=== PATIENT | female | born 1995 | race Caucasian/White ===

== ENCOUNTER 2025-04-29 12:25 | Outpatient (REF) | payer OTHER, SELFPAY ==
--- OUTSIDE RECORDS SUMMARY | 2025-03-22 13:50 | XMS_ITS | Encounter Summary ---
Author Organization [facility] Address [address], [place] [address] Care Team Providers Care Framer Name Role Phone Dagmar Poon PA-C Primary Care Provider Reason for Visit * Reason Comments COLPOSCOPY Encounter Details Date Type Department Care Team (Latest Contact Info) Description 03/22/2025 1:50 PM CDT Office Visit [place] 1515 Obstetrics/Gynecolo gy 1515 [facility] [place] [address] Mildred Quevedo MD 1515 [facility] [address] [place], [place] [id number] Atypical squamous cells cannot exclude high grade squamous intraepithelial lesion on cytologic smear of cervix (ASC-H) (Primary Dx); Cervical high risk HPV (human papillomavirus) test positive; Low grade squamous intraepithelial lesion (LGSIL) on cervical Pap smear; Presence of Mirena IUD Social History Tobacco Use Types Packs/Day Years Used Date Smoking Tobacco: Never Passive Smoke Exposure: Never Smokeless Tobacco: Never Alcohol Use Standard Drinks/Week Comments Yes 0 (1 standard drink = 0.6 oz pur e alcohol) socially PHQ-2 Answer Date Recorded PHQ-2 Score 1 02/07/2025 Comments No Sex and Gender Information Value Date Recorded Sex Assigned at Not on file Legal Sex Female 5:06 AM CDT Gender Identity Not on file Sexual Orientation Not on file 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 presents for colposcopy. She had a ASC-H, LGSIL pap smear, HPV other high-risk positive Adverse Drug Reactions: Allergies Allergen Reactions Cefuroxime PN: LW Reaction: Rash, Generalized Penicillins PN: LW Reaction: RASH Medications: Reviewed and updated on [facility] Patient Active Problem List Diagnosis Family history of colon cancer Atypical squamous cells cannot exclude high grade squamous intraepithelial lesion on cytologic smear of cervix (ASC-H) Adjustment disorder with anxiety (HRC) OBJECTIVE: BP 100/61 (BP Location: Left Arm, BP Cuff Size: Regular) Pulse (!) 45 Vital Signs: Reviewed; See Flowsheet Charting in [facility] PROCEDURE: Procedure was reviewed with the patient and she wished to proceed. She was placed in dorsolithotomyposition. Speculum was placed and the cervix is easily visualized. Mirena IUD strings are visible. Entire transformation zone was visualized. Green filter was used and there was no evidence of atypical vessels. Cervix and upper vaginal blackwood were sprayed with dilute acetic acid and inspected. Acetowhite changes were noted at 12 o'clock position on the cervix. There was also some irregularity to the cervix the slightly raised appearance at this location. Tischler forceps were used to biopsy thisarea. Silver nitrate sticks were used to achieve hemostasis. Endocervical curettings were obtained. Speculum was removed. Patient tolerated procedure well. Labs: Cervical biopsy at 12 o'clock. Endocervical curettings. ASSESSMENT: 1. 29 y.o. with Encounter Diagnoses Name Primary? Atypical squamous cells cannot exclude high grade squamous intraepithelial lesion on cytologic smear of cervix (ASC-H) Yes Cervical high risk HPV (human papillomavirus) test positive Low grade squamous intraepithelial lesion (LGSIL) on cervical Pap smear Presence of Mirena IUD PLAN: Colposcopy and biopsy done as described above. Will contact patient with results and determine follow-up and treatment plan at that time. Pelvic rest recommended for 3 to 4 days. Also discussedconsideration of the HPV 9 vaccine as she received the HPV 4 previously. All questions answered. *SH~DNS~colpo documented in this encounter Plan of Treatment Not on file documented as of this encounter Procedures Procedure Name Priority Date/Time Associated Diagnosis Comments SURGICAL PATHOLOGY, AUTOMATION CONTROLS SPECIALIST Routine 03/22/2025 2:04 PM CDT Atypical squamous cells cannot exclude high grade squamous intraepithelial lesion on cytologic smear of cervix (ASC-H) Cervical high risk HPV (human papillomavirus) test positive Low grade squamous intraepithelial lesion (LGSIL) on cervical Pap smear documented in this encounter Results * Surgical Path, AUTOMATION CONTROLS SPECIALIST (03/22/2025 2:04 PM CDT) Case Report Surgical Pathology Case: [id number] Authorizing Provider: Mildred Quevedo MD Collected: 03/22/2025 1404 Ordering Location: [place] [address] Received: 03/22/2025 1433 Obstetrics/Gyneco logy Pathologist: Dominic Uriostegui MD Specimens: A) - Cervix, 12:00 B) - Endocervix 04/06/2025 2:40 PM CDT [facility] FINAL DIAGNOSIS A. Cervix, 12:00, biopsy: High-grade squamous intraepithelial lesion (MICHELLE 2-3) Immunostain for p16 supports the diagnosis B. Endocervix, curettage: Benign endocervical mucosa 04/06/2025 2:40 PM CDT [facility] at 1440 CDT Clinical Information ASC-H, LGSIL, HPV other pos 04/06/2025 2:40 PM CDT [facility] Microscopic Description Microscopic examination is performed. 04/06/2025 2:40 PM CDT [facility] Special Stains The stain controls have been reviewed and stain appropriately. 04/06/2025 2:40 PM CDT [facility] Gross Description A: The specimen is received in formalin and labeled with the patient's name and Cervix, 12:00. The specimen consists of multiple davis-arcos tissue fragments ranging from less than 0.1 cm to 0.2 cm. The specimen is filtered and entirely submitted in one cassette. B: The specimen is received in formalin and labeled with the patient's name and Endocervix. The specimen consists of scant blood-tinged tissue fragments in a 2 cm in aggregate of mucus. The specimen is filtered and entirely submitted in one cassette. AW 04/06/2025 2:40 PM CDT [facility] Embedded Images 04/06/2025 2:40 PM CDT [facility] Tissue ENTIRE ENDOCERVIX / Unknown 03/22/2025 2:04 PM CDT 03/22/2025 2:33 PM CDT Tissue specimen (specimen) ENTIRE ENDOCERVIX / Unknown 03/22/2025 2:04 PM CDT 03/22/2025 2:33 PM CDT us Mildred Quevedo MD LAB PATHOLOGY Final Result [facility] [address] [place], [place] [address] documented in this encounter Visit Diagnoses Diagnosis Atypical squamous cells cannot exclude high grade squamous intraepithelial lesion on cytologic smear of cervix (ASC-H)- Primary Papanicolaou smear of cervix with atypical squamous cells cannot exclude high grade squamous intraepithelial lesion (ASC-H) Cervical high risk HPV (human papillomavirus) test positive Cervical high risk human papillomavirus (HPV) DNA test positive Low grade squamous intraepithelial lesion (LGSIL) on cervical Pap smear Presence of Mirena IUD documented in this encounter Care Teams Framer Relationship Specialty Start Date End Date Dagmar Poon PA-C [address] [place] [address] PCP - General Physician Pulp Screen Operator 01/07/25 documented as of this encounter
--- OUTSIDE RECORDS SUMMARY | 2025-03-22 13:50 | XMS_ITS | Encounter Summary ---
Author Organization [facility] Address [address] [address] Care Team Providers Care Director Stars Name Role Phone Dagmar Poon PA-C Primary Care Provider Reason for Visit * Reason Comments COLPOSCOPY Encounter Details Date Type Department Care Team (Latest Contact Info) Description 03/22/2025 1:50 PM CDT Office Visit [place] 1515 Obstetrics/Gynecolo gy 1515 [facility] 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 Not on file Not [...] Reaction: RASH Medications: Reviewed and updated on [facility] Patient Active Problem List Diagnosis Family history of colon cancer Atypical squamous cells cannot exclude high grade squamous intraepithelial lesion on cytologic smear of cervix (ASC-H) Adjustment disorder with anxiety (HRC) OBJECTIVE: BP 100/61 (BP Location: Left Arm, BP Cuff Size: Regular) Pulse (!) 45 Vital Signs: Reviewed; See Flowsheet Charting in [facility] PROCEDURE: Procedure was reviewed with the patient [...] Priority Date/Time Associated Diagnosis Comments SURGICAL PATHOLOGY, ELECTRICAL LINE MECHANIC Routine 03/22/2025 2:04 PM CDT Atypical squamous cells cannot exclude high grade squamous intraepithelial lesion on cytologic smear of cervix (ASC-H) Cervical high risk HPV (human papillomavirus) test positive Low grade squamous intraepithelial lesion (LGSIL) on cervical Pap smear documented in this encounter Results * Surgical Path, ELECTRICAL LINE MECHANIC (03/22/2025 2:04 PM CDT) Case Report Surgical Pathology Case: [id number] Authorizing Provider: Mildred Quevedo MD Collected: 03/22/2025 1404 Ordering Location: [place] [address] Received: 03/22/2025 1433 Obstetrics/Gyneco logy Pathologist: Dominic Uriostegui MD Specimens: A) - Cervix, 12:00 B) - Endocervix 04/06/2025 2:40 PM CDT [facility] FINAL DIAGNOSIS A. Cervix, 12:00, biopsy: High-grade squamous intraepithelial lesion (MICHELLE 2-3) Immunostain for p16 supports the diagnosis B. Endocervix, curettage: Benign endocervical mucosa 04/06/2025 2:40 PM CDT [facility] at 1440 CDT Clinical Information ASC-H, LGSIL, HPV other pos 04/06/2025 2:40 PM CDT [facility] Microscopic Description Microscopic examination is performed. 04/06/2025 2:40 PM CDT [facility] Special Stains The stain controls have been reviewed and stain appropriately. 04/06/2025 2:40 PM CDT [facility] Gross Description A: The specimen is [...] one cassette. AW 04/06/2025 2:40 PM CDT [facility] Embedded Images 04/06/2025 2:40 PM CDT [facility] Tissue ENTIRE ENDOCERVIX / Unknown 03/22/2025 2:04 PM CDT 03/22/2025 2:33 PM CDT Tissue specimen (specimen) ENTIRE ENDOCERVIX / Unknown 03/22/2025 2:04 PM CDT 03/22/2025 2:33 PM CDT us Mildred Quevedo MD LAB PATHOLOGY Final Result [facility] [address] [place], [place] [address] documented in this encounter Visit Diagnoses [...] IUD documented in this encounter Care Teams Director Stars Relationship Specialty Start Date End Date Dagmar Poon PA-C [address] [place] [address] PCP - General Physician Educational Recruiter 01/07/25 documented as of this encounter
--- OUTSIDE RECORDS SUMMARY | 2025-04-26 14:20 | XMS_ITS | Encounter Summary ---
Author Organization [facility] Address [address], [place] [address] Care Team Providers Care Home Care Attendant Name Role Phone Dagmar Poon PA-C Primary Care Provider [phone] Reason for Visit * Reason Comments LEEP Encounter Details Date Type Department Care Team (Late st Contact Info) Description 04/26/2025 2:20 PM CDT Office Visit [place] 1515 Obstetrics/Gynecolog y 1515 [facility] 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 P 0 presents for LEEP conization of cervix. She had a ASC-H papsmear, colposcopy showed MICHELLE 3 at 12 o'clock position She does have a Mirena IUD in place Adverse Drug Reactions: Allergies Allergen Reactions Cefuroxime PN: LW Reaction: Rash, Generalized Penicillins PN: LW Reaction: RASH Medications: Reviewed and updated. See Medication List in [facility] OBJECTIVE: BP 102/56 (BP Location: Right Arm, BP Cuff Size: Regular) Pulse 75 Wt 127 lb (57.6 kg) BMI 21.80 kg/m?? Vital Signs: Reviewed; See Flowsheet Charting in [facility] PROCEDURE: Procedure was reviewed with the patient and she wished to proceed. Consent was signed. She was placed in dorsolithotomy position. Plastic coated speculum was placed and the cervix is easily visualized. Entire transformation zone was visualized. IUD strings are visualized. Cervix was injected with 1% lidocaine in 4 quadrants for a total of 20 cc. The LEEP procedure was done. 1.5 x 0.7 cm loop electrode was then used on blend one cautery. A single pass was made across the cervix to remove the transformation zone for a conization specimen of the cervix. Hemostasis achieved with ball-tipped cautery. Endocervical curettings were obtained. IUD strings were cut at the level of the cervical os. Speculum was removed. Patient tolerated procedure well. Labs: Cone biopsy of the cervix. Endocervical curettings. ASSESSMENT: 1. 29 y.o. P0 with cervical dysplasia, MICHELLE 3 PLAN: LEEP (Loop electro-excisional procedure conization of cervix)done as described above. Will contact patient with results and determine follow-up and treatment plan at that time. Tentatively planfollowup Pap smear and HPV in 6-12 months. Pelvic rest recommended for 3 to 4 weeks. Discussed IUD strings were cut today because of the LEEP procedure. When she is due to have the IUD removed or replaced, she should see Gynecology as we will need to region of the cervix and possibly into the loweruterine cavity to remove the IUD. All questions answered. documented in this encounter Plan of Treatment Pending Results Name Type Priority Associated Diagnoses Date /Time Surgical Path, CYLINDER BLOCK MECHANIC Lab Routine MICHELLE III with severe dysplasia 04/26/2025 2:39 PM CDT documented as of this encounter Visit Diagnoses Diagnosis MICHELLE III with severe dysplasia- Primary Carcinoma in situ of cervix uteri IUD (intrauterine device) in place Presence of intrauterine contraceptive device documented in this encounter Care Teams Home Care Attendant Relationship Specialty Start Date End Date Dagmar Poon PA-C [address] [place] [address] PCP - General Physician Cokeman 01/07/25 documented as of this encounter
--- OUTSIDE RECORDS SUMMARY | 2025-04-26 14:20 | XMS_ITS | Encounter Summary ---
Author Organization [facility] Address [address] [address] Care Team Providers Care Senior Water Resources Engineer Name Role Phone Dagmar Poon PA-C Primary Care Provider [phone] Reason for Visit * Reason Comments LEEP Encounter Details Date Type Department Care Team (Late st Contact Info) Description 04/26/2025 2:20 PM CDT Office Visit [place] 1515 Obstetrics/Gynecolog y 1515 [facility] 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 See Medication List in [facility] OBJECTIVE: BP 102/56 (BP Location: Right Arm, BP Cuff Size: Regular) Pulse 75 Wt 127 lb (57.6 kg) BMI 21.80 kg/m?? Vital Signs: Reviewed; See Flowsheet Charting in [facility] PROCEDURE: Procedure was reviewed with the [...] Priority Associated Diagnoses Date /Time Surgical Path, CONTROLLER MECHANIC Lab Routine MICHELLE III with severe dysplasia 04/26/2025 2:39 PM CDT documented as of this encounter Visit Diagnoses Diagnosis MICHELLE III with severe dysplasia- Primary Carcinoma in situ of cervix uteri IUD (intrauterine device) in place Presence of intrauterine contraceptive device documented in this encounter Care Teams Senior Water Resources Engineer Relationship Specialty Start Date End Date Dagmar Poon PA-C [address] [place] [address] PCP - General Physician Sql Ssrs Developer 01/07/25 documented as of this encounter
--- OUTSIDE RECORDS SUMMARY | 2025-04-29 12:33 | XMS_ITS | Encounter Summary ---
Author Organization [facility] Address [address], [place] [address] Care Team Providers Care Web Production Artist Name Role Phone Dagmar Poon PA-C Primary Care Provider [phone] Encounter Details Date Type Department Care Team (Late st Contact Info) Description 04/06/2025 Results Follow-Up [place] [id number] Obstetrics/Gynecology [address] [facility]. 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 * Isa Ambriz RN - 04/08/2025 12:22 PM CDT Pt returning callback from nurse. Reviewed note below. Explained procedure to pt and My chart message sent regarding procedure. Pt advised to medicate with motrin 600 mg prior to procedure. Routing to surgery scheduling to schedule LEEP * Rosana Momin RN - 04/07/2025 10:06 AM CDT LM to return call to nurse line * Rosana Momin RN - 04/06/2025 4:23 PM CDT Pathology shows MICHELLE 2-3, therefore recommend LEEP in the office Surgical Path, CREDIT CONTROL CLERK LM to return call to nurse line documented in this encounter Plan of Treatment Not on file documented as of this encounter Visit Diagnoses Not on filedocumented in this encounter Care Teams Web Production Artist Relationship Specialty Start Date End Date Dagmar Poon PA-C [address] [place] [address] PCP - General Physician Spot Machine Operator 01/07/25 documented as of this encounter
--- OUTSIDE RECORDS SUMMARY | 2025-04-29 12:33 | XMS_ITS | Clinical Summary ---
Author Organization [facility] Address [address] [place] [address] Care Team Providers Care Charm Filter Operator Helper Name Role Phone Dagmar Poon PA-C Primary Care Provider [phone] Source Comments You are receiving this document as you are listed as the primary care provider,follow-up provider, or the patient has been referred to you for consultation.This is in compliance with the Medicare and[facility] EHR Incentive Program,which states Providers who transition their patient to another setting of careor provider of care or refers their patient to another provider of care shouldprovide summary care record for each transition of care or referral. [employer] Allergies Active Allergy Reactions Criticality Noted Date Comments Cefuroxime 01/19/2008 PN: LW Reaction: Rash, Generalized Penicillins 08/08/2003 PN: LW Reaction: RASH Medications levonorgestrel (MIRENA) 20 MCG/DAY IUDIndications:En counter for insertion of intrauterine contraceptive device 1 Each by Intrauterine route continuous. 12/30/19 24 12/28/ 032 Active fluticasone propionate (FLONASE) 50 MCG/ACT nasal solution Place 2 Sprays into both nostrils daily. 16 g 11 10/04/20 24 Active Active Problems Problem Noted Date Diagnosed Date Adjustment disorder with anxiety 02/07/2025 Atypical squamous cells mo ot exclude high grade squamous intraepithelial lesion on cytologic smear of cervix (ASC-H) 01/16/2024 Overview (04/07/2025): [facility] Review: History: 02/2017: NILM 06/2019: NILM 12/2023: ASC-H. [place] neg 01/2025: ASC-H & LSIL HPV+ other 03/2025: [place] MICHELLE 2-3 Plan, per ASCCP: LEEP Family history of colon cancer 07/13/2019 Resolved Problems Problem Noted Date Diagnosed Date Resolved Date Absent menses 02/11/2014 07/13/2019 Overview (06/13/2016): failure of provera challenge Family planning, BCP ( control pills) initial prescription 02/11/2014 09/30/2023 Enlarged lymph nodes 01/19/2008 019 Overview (07/02/2017): Lymphadenopathy Cervical Varicella 02/09/2007 09/30/2023 Overview (07/02/2017): Varicella Zoster Encounters Date Type Department Care Team Description 04/26/2025 2:20 PM CDT Office Visit [place] [address] Obstetrics/Gynecol [address] [place] [address] Mildred Quevedo MD MICHELLE III with severe dysplasia (Primary Dx); IUD (intrauterine device) in place 04/06/2025 Results Follow-Up [place] [address] Obstetrics/Gynecol [facility] [address] [facility]. [place] [address] Mildred Quevedo MD 03/22/2025 1:50 PM CDT Office Visit [place] [address] Obstetrics/Gynecol [address] [place] [address] Mildred Quevedo MD Atypical squamous cells cannot exclude high grade squamous intraepithelial lesion on cytologic smear of cervix (ASC-H) (Primary Dx); Cervical high risk HPV (human papillomavirus) test positive; Low grade squamous intraepithelial lesion (LGSIL) on cervical Pap smear; Presence of Mirena IUD 03/04/2025 Results Follow-Up Cervical Cancer Screening and Management [address] [place] [address] Marycarmen Cosby RN 03/04/2025 Telephone Cervical Cancer Screening and Management [address] [place] [address] Maria Del Rosario Bernal MD Abnormal Pap Smear (ASC-H/LSIL, HPV+ other) 02/15/2025 10:30 AM CDT E-Visit [facility] [address] [place] [address]. [place] [address] Dottie Lester MD Dx: Adjustment disorder with anxiety (HRC) (Primary Dx) 02/07/2025 8:00 AM CDT Telemedicine [address] [place] [address] Dottie Lester MD Adjustment disorder with anxiety (HRC) (Primary Dx) 02/07/2025 E-Visit [facility] [address] [place], [place] [address] [address] Mychart, Generic Provider 02/04/2025 1:10 PM CDT Office Visit Otolaryngology at [place] [address] [place] [address] [address] [place] [address] Arpit Magaña MD Deviated nasal septum (Primary Dx); Hypertrophy of nasal turbinates; Nasal obstruction from Last 3 Months Immunizations Immunization Administration Dates Next Due 4vHPV (Gardasil) 05/22/2010,02/09/2007 DTP-Hib (Tetramune) 05/07/1996,03/04/1996,1995 DTaP 02/23/2001,06/07/1997 DTaP/Hib 05/07/1996,03/04/1996,01/09/1996 Flu Vac Preserv Free (3+yrs) 12/08/2024 HepA Adult (19+ yrs) 07/13/2019 HepA Ped/Adol (1-18 yrs) 05/22/2010 HepB Adult (Engerix-B, 20+ y rs, 3 dose series) 09/09/1996,03/04/1996,01/09/1996 Hib (ActHIB) 06/07/1997 IPV (Polio) 02/23/2001 Influenza IIV4 (Quadrivalent ) 0.5mL (67552) 09/22/2023,12/20/2021,09/30/2020 MCV4 (Menactra) 05/22/2010 MMR 02/23/2001,06/07/1997 OPV, Trivalent (Orimune or tOPV) 05/07/1996,02/09,01/09/1996 Pfizer Monovalent 12+ Purple Top 11/27/2021,05/0 02/2021,02/16/2021 TB Skin Test (PPD) 12/31/2021,,02/12/2021,2020,01/19/2008 TDAP (BOOSTRIX) 02/09/2007 Tdap 07/08/2019 Family History Medical History Relation Name Comments Amblyopia/Strabismus Maternal Aunt Alzheimer's Maternal Grandfather Cancer, Colon Maternal Grandmother Cataract Maternal Grandmother Osteoporosis Maternal Grandmother Cancer, Colon Paternal Grandfather Macular Degeneration Paternal Grandmother Osteoporosis Paternal Grandmother Blindness Negative Family History Diabetes Negative Family History Glaucoma Negative Family History Retinal Detachment Negative Family History Relation Name Status Comments Father Alive Mother Alive Maternal Aunt Maternal Grandfather Maternal Grandmother Paternal Grandfather Paternal Grandmother Alive Sister Alive Social History Tobacco Use Types Packs/Day Years Used Date Smoking Tobacco: Never Passive Smoke Exposure: Never Smokeless Tobacco: Never Tobacco Cessation:Counseling Given: Not Answered Alcohol Use Standard Drinks/Week Comments Yes 0 [...] 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 Not on file Not on f ile Last Filed Vital Signs Vital Sign Reading Time Taken Comments Blood Pressure 102/56 04/26/2025 2:17 PM CDT Pulse 75 04/26/2025 2:17 PM CDT Temperature 36.4 C (97.5 F) 05/23/2011 9:55 AM CDT Respiratory Rate 14 05/23/2011 9:55 AM CDT Oxygen Saturation - - Inhaled Oxygen Concentration - - Weight 57.6 kg (127 lb) 04/26/2025 2:17 PM CDT Height 162.6 cm (5' 4) 07/13/2019 1:32 PM CDT Body Mass Index 21.8 07/13/2019 1:32 PM CDT Plan of Treatment Health Maintenance Due Date Last Done Comments Hep C Screening (Preventive Services) 1995 Adult Preventive Visit 07/13/2021 9, 07/08/2019, 06/12/2018, Additional history exists COVID-19 Vaccine ( season) 2024 11/27/2021, 03/13/2021, 02/16/2021 Cervical Cancer Screening 04/26/20262024, 03/22/2025, 01/21/2025, Additional history exists DTaP/Tdap/Td Vaccine (8 - Tdap) 07/08/2029 07/08/2019, 02/09/2007, 02/23/2001, Additional history exists Zoster/Shingles Vaccine (1 of 2) 2045 HepB Vaccine Completed 09/09/1996, 02/09, 01/09/1996 Hib Vaccine Completed 06/07/1997, 04/11, 05/07/1996, Additional history exists HIV Screening (Preventive Services) Completed 01/19/2008 HPV Vaccine Completed 05/22/2010, 02/09/2007 MCV4 Vaccine Aged Out 05/22/2010 No longer eligi ble based on patient's age to complete this topic HepA Vaccine Completed 07/13/2019, 05/22/2010 Chlamydia Discontinued 12/30/2023, 02/08, 11/07/2015 Influenza Vaccine Completed 12/08/2024, , 12/20/2021, Additional history exists Meningococcal B Vaccine Aged Out No l onger eligible based on patient's age to complete this topic Pneumococcal Vaccine Aged Out No long er eligible based on patient's age to complete this topic Procedures Procedure Name Priority Date/Time Associated Diagnosis Comments SURGICAL PATHOLOGY, TUB WASH OPERATOR Routine 03/22/2025 2:04 PM CDT Atypical squamous cells cannot exclude high grade squamous intraepithelial lesion on cytologic smear of cervix (ASC-H) Cervical high risk HPV (human papillomavirus) test positive Low grade squamous intraepithelial lesion (LGSIL) on cervical Pap smear CYTOLOGY (PAP) Routine 01/21/2025 3:05 PM CDT Atypical squamous cells cannot exclude high grade squamous intraepithelial lesion on cytologic smear of cervix (ASC-H) CHLAMYDIA & GC (14 YEARS & OLDER) Routine 12/30/2023 4:02 PM HANDLE FINISHER Screening examination for venereal disease HIV ANTIBODY Routine 01/19/2008 9:40 AM CDT from Last 3 Months or Most Recently Relevant to Health Maintenance Results * Surgical Path, TUB WASH OPERATOR (03/22/2025 2:04 PM CDT) Case Report Surgical Pathology Case: [id number] Authorizing Provider: Mildred Quevedo MD Collected: 03/22/2025 1404 Ordering Location: [place] [address] Received: 03/22/2025 1433 Obstetrics/Gyneco logy Pathologist: Dominic Uriostegui MD Specimens: A) - Cervix, 12:00 B) - Endocervix 04/06/2025 2:40 PM CDT [facility] FINAL DIAGNOSIS A. Cervix, 12:00, biopsy: High-grade squamous intraepithelial lesion (MICHELLE 2-3) Immunostain for p16 supports the diagnosis B. Endocervix, curettage: Benign endocervical mucosa 04/06/2025 2:40 PM CDT [facility] at 1440 CDT Clinical Information ASC-H, LGSIL, HPV other pos 04/06/2025 2:40 PM CDT [facility] Microscopic Description Microscopic examination is performed. 04/06/2025 2:40 PM CDT [facility] Special Stains The stain controls have been reviewed and stain appropriately. 04/06/2025 2:40 PM CDT [facility] Gross Description A: The specimen is [...] one cassette. AW 04/06/2025 2:40 PM CDT [facility] Embedded Images 04/06/2025 2:40 PM CDT [facility] Tissue ENTIRE ENDOCERVIX / Unknown 03/22/2025 2:04 PM CDT 03/22/2025 2:33 PM CDT Tissue specimen (specimen) ENTIRE ENDOCERVIX / Unknown 03/22/2025 2:04 PM CDT 03/22/2025 2:33 PM CDT Mildred Quevedo MD LAB PATHOLOGY Final Result [facility] [address] * (ABNORMAL) Cytology (Pap) (01/21/2025 3:05 PM CDT) Case Report Pap Case: [id number] Authorizing Provider: Mildred Quevedo MD Collected: 01/21/2025 1505 Ordering Location: [place] [address] Received: 01/21/2025 1626 Obstetrics/Gynec ology First Screen: Sandee Morales, CT (ASCP) Pathologist: Mouna Mina MD Specimen: Pap Test, Routine, Cervix/Endocervix 03/03/2025 11:24 AM [facility] Pap Specimen Adequacy Satisfactory for evaluation, endocervical/hamm sformation zone component present. 03/03/2025 11:24 AM [facility] Pap Interpretation (ASC-H & LSIL) Atypical squamous cells of undetermined significance, cannot exclude HSIL. Additional cells consistent with low-grade squamous intraepithelial lesion.(A) 03/03/2025 11:24 AM [facility] at 1124 CDT Pap Disclaimer The Pap test is a screening test to aid in the detection of cervical and vaginal cancers and their precursor lesions. It is not a diagnostic procedure and should not be used as the sole means of detecting malignancy. Both false-positive and false-negative results may occur. 03/03/2025 11:24 AM [facility] Gross Description The specimen is received in SurePath fixative and properly labeled. 1 Pap-stained SurePath slide is prepared. 03/03/2025 11:24 AM [facility] Embedded Images 11:24 AM [facility] Other Specimen Type ENTIRE ENDOCERVIX / Unknown 01/21/2025 3:05 PM CDT 01/21/2025 4:26 PM CDT Comment:LMP: No LMP recorded (lmp unknown). (Menstrual status: Secondary amenorrhea). Mildred Quevedo MD LAB PATHOLOGY Final Result [facility] [address] [place] [address], [facility] * Chlamydia & GC (14 Years and Older): Vagina (12/30/2023 4:02 PM HANDLE FINISHER) Chlamydia Trachomatis STD Not Detected Not Detected 12/31/2023 12:27 PM HANDLE FINISHER [facility] N. gonorrhoeae STD Not Detected Not Detected 12/31/2023 12:27 PM HANDLE FINISHER [facility] Swab STD SPECIMEN FROM VAGINA / Unknown Non-blood Collection / Unknown 12/30/2023 4:02 PM HANDLE FINISHER 12/30/2023 4:39 PM HANDLE FINISHER Narrative [facility] - 12/31/2023 12:27 PM HANDLE FINISHER Test performed by Grievance Coordinator Mediated Amplification (TMA). Mildred Quevedo MD LAB_1 Final Result Performing Organization Address City/[facility]/ZIP Co de Phone Number [facility] [address] [place] [address], [facility] * HIV Antibody (01/19/2008 9:40 AM CDT) HIV 1/HIV 2 Non Reac Non Reac HP CONVERSION 01/19/2008 9:40 AM CDT Quinton Dominguez MD LAB_1 Final Res ult HP CONVERSION from Last 3 Months or Most Recently Relevant to Health Maintenance Insurance [phone] [place] [address] [phone] [place] [address] [place] [address] [place] Care Teams Charm Filter Operator Helper Relationship Specialty Start Date End Date Dagmar Poon PA-C [address] [place] [address] PCP - General Physician Financial Sales Manager 01/07/25
--- OUTSIDE RECORDS SUMMARY | 2025-04-29 12:33 | XMS_ITS | Encounter Summary ---
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
--- OUTSIDE RECORDS SUMMARY | 2025-04-30 00:50 | XMS_ITS | Clinical Summary ---
Author Organization [facility] Address [address] [place] [address] Care Team Providers Care Piano Professor Name Role Phone Dagmar Poon PA-C Primary Care Provider [phone] Source Comments You are receiving this document as you are listed as the primary care provider,follow-up provider, or the patient has been referred to you for consultation.This is in compliance with the Medicare and[facility] Hospital[facility] EHR Incentive Program,which states Providers who transition their patient to another setting of careor provider of care or refers their patient to another provider of care shouldprovide summary care record for each transition of care or referral. [employer] Allergies Active Allergy Reactions Criticality Noted Date Comments Cefuroxime 01/19/2008 PN: LW Reaction: Rash, Generalized Penicillins 08/08/2003 PN: LW Reaction: RASH Medications levonorgestrel (MIRENA) 20 MCG/DAY IUDIndications:En counter for insertion of intrauterine contraceptive device 1 Each by Intrauterine route continuous. 12/30/19 24 032 Active fluticasone propionate (FLONASE) 50 MCG/ACT nasal solution Place 2 Sprays into both nostrils daily. 16 g 11 10/04/20 24 Active Active Problems Problem Noted Date Diagnosed Date Adjustment disorder with anxiety 02/07/2025 Atypical squamous cells mo ot exclude high grade squamous intraepithelial lesion on cytologic smear of cervix (ASC-H) 01/16/2024 Overview (04/07/2025): [facility] Review: History: 02/2017: NILM 06/2019: NILM 12/2023: ASC-H. [place] neg 01/2025: ASC-H & LSIL HPV+ other 03/2025: [place] MICHELLE 2-3 Plan, per ASCCP: LEEP Family [...] Description 04/26/2025 2:20 PM CDT Office Visit [place] [address] Obstetrics/Gynecol [address] [place] [address] Mildred Quevedo MD MICHELLE III with severe dysplasia (Primary Dx); IUD (intrauterine device) in place 04/06/2025 Results Follow-Up [place] [address] Obstetrics/Gynecol [facility] [address] [facility]. [place] [address] Mildred Quevedo MD 03/22/2025 1:50 PM CDT Office Visit [place] [address] Obstetrics/Gynecol [address] [place] [address] Mildred Quevedo MD Atypical squamous cells cannot exclude high grade squamous intraepithelial lesion on cytologic smear of cervix (ASC-H) (Primary Dx); Cervical high risk HPV (human papillomavirus) test positive; Low grade squamous intraepithelial lesion (LGSIL) on cervical Pap smear; Presence of Mirena IUD 03/04/2025 Results Follow-Up Cervical Cancer Screening and Management [address] [place] [address] Marycarmen Cosby RN 03/04/2025 Telephone Cervical Cancer Screening and Management [address] [place] [address] Maria Del Rosario Bernal MD Abnormal Pap Smear (ASC-H/LSIL, HPV+ other) 02/15/2025 10:30 AM CDT E-Visit [facility] [address] [place] [address]. [place] [address] Dottie Lester MD Dx: Adjustment disorder with anxiety (HRC) (Primary Dx) 02/07/2025 8:00 AM CDT Telemedicine [address] [place] [address] Dottie Lester MD Adjustment disorder with anxiety (HRC) (Primary Dx) 02/07/2025 E-Visit [facility] [address] [place], [place] [address] [address] Mychart, Generic Provider 02/04/2025 1:10 PM CDT Office Visit Otolaryngology at [place] [address] [place] [address] [address] [place] [address] Arpit Magaña MD Deviated nasal septum (Primary [...] (Polio) 02/23/2001 Influenza IIV4 (Quadrivalent ) 0.5mL (75552) 09/22/2023,12/20/2021,09/30/2020 MCV4 (Menactra) 05/22/2010 MMR 02/23/2001,06/07/1997 OPV, [...] 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 [...] Priority Date/Time Associated Diagnosis Comments SURGICAL PATHOLOGY, BEEKEEPER FARMER Routine 03/22/2025 2:04 PM CDT Atypical squamous [...] YEARS & OLDER) Routine 12/30/2023 4:02 PM AUTOMOTIVE SALES MANAGER Screening examination for venereal disease HIV ANTIBODY Routine 01/19/2008 9:40 AM CDT from Last 3 Months or Most Recently Relevant to Health Maintenance Results * Surgical Path, BEEKEEPER FARMER (03/22/2025 2:04 PM CDT) Case Report Surgical Pathology Case: [id number] Authorizing Provider: Mildred Quevedo MD Collected: 03/22/2025 1404 Ordering Location: [place] [address] Received: 03/22/2025 1433 Obstetrics/Gyneco logy Pathologist: Dominic Uriostegui MD Specimens: A) - Cervix, 12:00 B) - Endocervix 04/06/2025 2:40 PM CDT [facility] FINAL DIAGNOSIS A. Cervix, 12:00, biopsy: High-grade squamous intraepithelial lesion (MICHELLE 2-3) Immunostain for p16 supports the diagnosis B. Endocervix, curettage: Benign endocervical mucosa 04/06/2025 2:40 PM CDT [facility] at 1440 CDT Clinical Information ASC-H, LGSIL, HPV other pos 04/06/2025 2:40 PM CDT [facility] Microscopic Description Microscopic examination is performed. 04/06/2025 2:40 PM CDT [facility] Special Stains The stain controls have been reviewed and stain appropriately. 04/06/2025 2:40 PM CDT [facility] Gross Description A: The specimen is [...] one cassette. AW 04/06/2025 2:40 PM CDT [facility] Embedded Images 04/06/2025 2:40 PM CDT [facility] Tissue ENTIRE ENDOCERVIX / Unknown 03/22/2025 2:04 PM CDT 03/22/2025 2:33 PM CDT Tissue specimen (specimen) ENTIRE ENDOCERVIX / Unknown 03/22/2025 2:04 PM CDT 03/22/2025 2:33 PM CDT Mildred Quevedo MD LAB PATHOLOGY Final Result [facility] [address] * (ABNORMAL) Cytology (Pap) (01/21/2025 3:05 PM CDT) Case Report Pap Case: [id number] Authorizing Provider: Mildred Quevedo MD Collected: 01/21/2025 1505 Ordering Location: [place] [address] Received: 01/21/2025 1626 Obstetrics/Gynec ology First Screen: Sandee Morales, CT (ASCP) Pathologist: Mouna Mina MD Specimen: Pap Test, Routine, Cervix/Endocervix 03/03/2025 11:24 AM [facility] Pap Specimen Adequacy Satisfactory for evaluation, endocervical/hamm sformation zone component present. 03/03/2025 11:24 AM [facility] Pap Interpretation (ASC-H & LSIL) Atypical squamous cells of undetermined significance, cannot exclude HSIL. Additional cells consistent with low-grade squamous intraepithelial lesion.(A) 03/03/2025 11:24 AM [facility] at 1124 CDT Pap Disclaimer The Pap test is a screening test to aid in the detection of cervical and vaginal cancers and their precursor lesions. It is not a diagnostic procedure and should not be used as the sole means of detecting malignancy. Both false-positive and false-negative results may occur. 03/03/2025 11:24 AM [facility] Gross Description The specimen is received in SurePath fixative and properly labeled. 1 Pap-stained SurePath slide is prepared. 03/03/2025 11:24 AM [facility] Embedded Images 11:24 AM [facility] Other Specimen Type ENTIRE ENDOCERVIX / Unknown 01/21/2025 3:05 PM CDT 01/21/2025 4:26 PM CDT Comment:LMP: No LMP recorded (lmp unknown). (Menstrual status: Secondary amenorrhea). Mildred Quevedo MD LAB PATHOLOGY Final Result [facility] [address] [place] [address], [facility] * Chlamydia & GC (14 Years and Older): Vagina (12/30/2023 4:02 PM AUTOMOTIVE SALES MANAGER) Chlamydia Trachomatis STD Not Detected Not Detected 12/31/2023 12:27 PM AUTOMOTIVE SALES MANAGER [facility] N. gonorrhoeae STD Not Detected Not Detected 12/31/2023 12:27 PM AUTOMOTIVE SALES MANAGER [facility] Swab STD SPECIMEN FROM VAGINA / Unknown Non-blood Collection / Unknown 12/30/2023 4:02 PM AUTOMOTIVE SALES MANAGER 12/30/2023 4:39 PM AUTOMOTIVE SALES MANAGER Narrative [facility] - 12/31/2023 12:27 PM AUTOMOTIVE SALES MANAGER Test performed by Sow Farm Manager Mediated Amplification (TMA). Mildred Quevedo MD LAB_1 Final Result Performing Organization Address City/[facility]/ZIP Co de Phone Number [facility] [address] [place] [address], [facility] * HIV Antibody (01/19/2008 9:40 AM CDT) HIV 1/HIV 2 Non Reac Non Reac HP CONVERSION 01/19/2008 9:40 AM CDT Quinton Dominguez MD LAB_1 Final Res ult HP CONVERSION from Last 3 Months or Most Recently Relevant to Health Maintenance Insurance [phone] [place] [address] [id number] [place] [address] [place] Care Teams Piano Professor Relationship Specialty Start Date End Date Dagmar Poon PA-C [address] [place] [address] PCP - General Physician Fork Truck Operator 01/07/25
--- OUTSIDE RECORDS SUMMARY | 2025-04-30 00:50 | XMS_ITS | Encounter Summary ---
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
--- OUTSIDE RECORDS SUMMARY | 2025-04-30 00:50 | XMS_ITS | Encounter Summary ---
Author Organization [facility] Address [address] [address] Care Team Providers Care Reimbursement Liaison Name Role Phone Dagmar Poon PA-C Primary Care Provider [phone] Encounter Details Date Type Department Care Team (Late st Contact Info) Description 04/06/2025 Results Follow-Up [place] [id number] Obstetrics/Gynecology [address] [facility]. [place], [place] [id number] Mildred Quevedo MD [address] 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
== END 2025-04-29 12:26 | disposition home or self-care (01) ==
LOC: RAD 12:25
PROVIDERS: Visit Provider Chiropractor
DX: R55 Syncope and collapse (principal)
CPT/HCPCS: 93306